=== PATIENT | female | born 1965 | race Caucasian/White ===

== ENCOUNTER 2017-06-20 19:18 | Emergency (ER) | payer MEDICAID ==
[~2017-06-20] VITALS: Ht 162.6 cm; Wt 91.4 kg
[2017-06-20 19:27] VITALS: BP 135/94
[2017-06-20 20:07] LABS: BASOPHILS # (AUTO) 0.1 K/uL (0.00-0.22); BASOPHILS % (AUTO) 0.6 % (0.0-2.0); EOSINOPHILS # (AUTO) 0.1 K/uL (0-0.4); EOSINOPHILS % (AUTO) 1.7 % (0.0-4.0); HEMATOCRIT 41.5 % (36-48); HEMOGLOBIN 14.3 g/dL (12.0-16.0); LYMPHOCYTES # (AUTO) 3.7 K/uL (2.5-16.5); LYMPHOCYTES % (AUTO) 44.7 % (20.5-51.1); MEAN CORPUSCULAR HEMOGLOBIN 31 pg (27-31); MEAN CORPUSCULAR HGB CONC 35 g/dL (33-37); MONOCYTES # (AUTO) 0.5 K/uL (0.8-1.0); MONOCYTES % (AUTO) 5.8 % (1.7-9.3); NEUTROPHILS # (AUTO) 3.9 K/uL (1.8-7.7); NEUTROPHILS % (AUTO) 47.2 % (42.2-75.2); PLATELET COUNT (AUTO) 251 K/uL (140-450); RED BLOOD CELL COUNT(AUTO) 4.61 MIL/uL (4.20-5.40); WHITE BLOOD COUNT (AUTO) 8.4 K/uL (4.8-10.8)
[2017-06-20 20:21] LABS: ANION GAP 10.5 (8-16); CARBON DIOXIDE 29.9 mmol/L (21-32); CREATININE 0.7 mg/dL (0.6-1.3); POTASSIUM 3.4 mmol/L (3.5-5.1)
[2017-06-20 20:27] LABS: ALBUMIN 3.5 g/dL (3.4-5.0); TOTAL BILIRUBIN 0.5 mg/dL (0.0-1.0)
[2017-06-20 20:51] LABS: PROTHROMBIN TIME 9.4 secs (10.8-13.4)
--- NOTE | 2017-06-20 21:06 | NUR ---
AMBULATED TO ER BED 1
[2017-06-20] MEDS ORDERED: KETOROLAC 60 MG/2 ML VIAL IM ONE (22:05)
[2017-06-20] MEDS ORDERED: LORazepam 2 MG/ML VIAL IM ONE (22:05)
[2017-06-20 23:28] VITALS: BP 119/75
--- NOTE | 2017-06-20 23:28 | NUR ---
Patient discharged with v/s stable. Written and verbal after care instructions given and explained. Patient alert, oriented and verbalized understanding of instructions. Ambulatory with steady gait. All questions addressed prior to discharge. ID band removed. Patient advised to follow up with PMD. Rx of MOTRIN 800MG AND XANAX 0.5MG given. Patient educated on indication of medication including possible reaction and side effects. Opportunity to ask questions provided and answered.
== END 2017-06-20 23:29 | disposition home or self-care (01) ==
LOC: MED 19:18
DX: F45.8 Other somatoform disorders (principal); R07.89 Other chest pain; Z87.01 Personal history of pneumonia (recurrent)
CPT/HCPCS: 36415; 71045; 80053; 84484; 85025; 85610; 85730; 93005; 96372; 99285; J1885; J2060; Q0092

== ENCOUNTER 2017-08-29 14:46 | Emergency (ER) | payer MEDICAID ==
[~2017-08-29] VITALS: Ht 149.9 cm; Wt 89.0 kg
[2017-08-29 14:50] VITALS: BP 132/81
--- NOTE | 2017-08-29 15:04 | NUR ---
PT. CAME INTO THE ED DUE TO R EAR PAIN AND A COUGH THAT STARTED TODAY. PT. STATES " I HAVE HAD THIS PAIN IN MY R EAR FOR ABOUT 3 DAYS AND THIS MORNING I STARTED WITH THIS COUGH BUT I DONT HAVE PHLEGM AND MY CHEST HURTS". PT. IS AAOX4, RR EVEN AND UNLABORED. PT. HAS A NON PRODUCTIVE COUGH SINCE THIS MORNING. PT. DENIES ANY FEVERS, LS: CLEAR BILAT. THROUGHOUT. ER MD NOTIFIED. SAFETY PRECAUTIONS. WILL CONTINUE TO MONITOR.
[2017-08-29] MEDS ORDERED: NACL 0.9% 1,000 ML IV ONE (15:05)
--- NOTE | 2017-08-29 15:30 | NUR ---
XRAY AT BEDSIDE
[2017-08-29 15:46] LABS: BASOPHILS % (AUTO) 0.5 % (0.0-2.0); EOSINOPHILS # (AUTO) 0.1 K/uL (0-0.4); EOSINOPHILS % (AUTO) 1.1 % (0.0-4.0); HEMATOCRIT 40.4 % (36-48); HEMOGLOBIN 13.5 g/dL (12.0-16.0); LYMPHOCYTES # (AUTO) 1.7 K/uL (2.5-16.5); MEAN CORPUSCULAR HEMOGLOBIN 30 pg (27-31); MEAN CORPUSCULAR HGB CONC 34 g/dL (33-37); MEAN CORPUSCULAR VOLUME 90.3 fL (80-94); MONOCYTES # (AUTO) 0.4 K/uL (0.8-1.0); MONOCYTES % (AUTO) 6.2 % (1.7-9.3); NEUTROPHILS # (AUTO) 4.1 K/uL (1.8-7.7); NEUTROPHILS % (AUTO) 65.2 % (42.2-75.2); PLATELET COUNT (AUTO) 191 K/uL (140-450); RED BLOOD CELL COUNT(AUTO) 4.47 MIL/uL (4.20-5.40); RED CELL DISTRIBUTION WIDTH 13.1 % (11.6-13.7); WHITE BLOOD COUNT (AUTO) 6.3 K/uL (4.8-10.8)
[2017-08-29 15:59] LABS: PROTHROMBIN TIME 10.6 secs (10.8-13.4)
[2017-08-29 16:02] LABS: ALBUMIN 3.6 g/dL (3.4-5.0); ANION GAP 12.8 (8-16); CARBON DIOXIDE 26.9 mmol/L (21-32); CREATININE 0.6 mg/dL (0.6-1.3); POTASSIUM 3.7 mmol/L (3.5-5.1); TOTAL BILIRUBIN 0.5 mg/dL (0.0-1.0)
--- NOTE | 2017-08-29 16:35 | NUR ---
PT. LAYING IN BED RESTING COMFORTABLY, RR EVEN AND UNLABORED. GRANDDAUGHTER AT BEDSIDE. WILL CONTINUE TO MONITOR.
--- NOTE | 2017-08-29 16:44 | NUR ---
PT. AMBULATED TO RESTROOM, STEADY GAIT, DENIES DIZZINESS. WILL CONTINUE TO MONITOR.
[2017-08-29 17:17] VITALS: BP 102/63
--- NOTE | 2017-08-29 17:17 | NUR ---
Patient discharged with v/s stable. Written and verbal after care instructions given and explained. Patient alert, oriented and verbalized understanding of instructions. Ambulatory with steady gait. All questions addressed prior to discharge. ID band removed. Patient advised to follow up with PMD. Rx of AZITHROMYCIN, MOTRIN, PROMETHAZINE given. Patient educated on indication of medication including possible reaction and side effects. Opportunity to ask questions provided and answered.
[2017-09-01] MEDS ORDERED: METH4TAB1 PO (09:41)
[2017-09-01] MEDS ORDERED: FLONAS NS (09:41)
[2017-09-01] MEDS ORDERED: LACT10CA PO (09:41)
[2017-09-01] MEDS ORDERED: SIMV40TA5 PO (09:41)
[2017-09-01] MEDS ORDERED: LEVO750T2 PO (09:41)
[2017-09-01] MEDS ORDERED: ALBU-118 IH (10:50)
== END 2017-08-29 17:17 | disposition home or self-care (01) ==
LOC: MED 14:46 → EDBD 14:46 → EDUNIT# 14:46 → MED 17:17
DX: J02.8 Acute pharyngitis due to other specified organisms (principal); B96.89 Other specified bacterial agents as the cause of diseases classified elsewhere; E78.5 Hyperlipidemia, unspecified; H92.01 Otalgia, right ear; R07.89 Other chest pain
CPT/HCPCS: 36415; 71045; 80053; 83605; 83880; 84484; 85025; 85610; 85730; 87040; 93005; 99285; Q0092